=== PATIENT | male | born 1985 | race Hispanic/Latino ===

== ENCOUNTER 2022-01-05 09:19 | Emergency (ER) | payer SELFPAY ==
[2022-01-05] MEDS ORDERED: TETRACAINE HCL 0.5% 4ML OPTH ONE (09:35)
[2022-01-05] MEDS ORDERED: FLUORESCEIN SODIUM 1 MG/WRAP ONE (09:35)
[2022-01-05] MEDS ORDERED: TETANUS & DIPHTHERIA TOX,ADULT 0.5 ML VIAL ONE (10:08)
--- NOTE | 2022-01-05 10:15 | EDPHYS ---
Physician Documentation [facility] Name: Osvaldo Guerrero Age: 36 yrs Sex: Male : 1985 Arrival Date: 01/05/2022 Time: 09:21 Bed 3 Private MD: ED Physician Elia Lee HPI: 01/05 09:54 This 36 yrs old Male presents to ER via Ambulatory with complaints of left eye jl9 pain. Patient report using a chainsaw yesteray when a small piece of wood went into his eye. Patient denies any vision disturbances. . 09:54 The patient sustained an abrasion. Onset: The symptoms/episode began/occurred jl9 yesterday. Duration: the symptoms are continuous. Aggravated by blinking, Alleviated by nothing. Associated signs and symptoms: Pertinent negatives:. Patient does not utilize any form of vision correction. Severity of symptoms: Pain is currently a 2 / 10. Historical: - Allergies: 09:33 No Known Allergies; aa5 - PMHx: 09:33 Pancreatitis; Diabetes mellitus; aa5 - PSHx: 09:33 None; aa5 - Immunization history:: Last tetanus immunization: unknown. - Social history:: Smoking status: Patient denies any tobacco usage or history of. ROS: 09:56 Constitutional: Negative for fever, chills, and weight loss. jl9 09:56 ENT: Negative for injury, pain, and discharge, Neck: Negative for injury, pain, and swelling, Cardiovascular: Negative for chest pain, palpitations, and edema, Respiratory: Negative for shortness of breath, cough, wheezing, and pleuritic chest pain, Abdomen/GI: Negative for abdominal pain, nausea, vomiting, diarrhea, and constipation, Back: Negative for injury and pain, Skin: Negative for injury, rash, and discoloration, Neuro: Negative for headache, weakness, numbness, tingling, and seizure, Psych: Negative for depression, anxiety, suicide ideation, homicidal ideation, and hallucinations, Allergy/Immunology: Negative for hives, rash, and allergies, Endocrine: Negative for neck swelling, polydipsia, polyuria, polyphagia, and marked weight changes, Hematologic/Lymphatic: Negative for swollen nodes, abnormal bleeding, and unusual bruising. 09:56 Eyes: Positive for foreign body sensation, pain, redness. Exam: 09:58 Visual Acuity: I have reviewed the nursing documentation. jl9 09:58 Constitutional: This is a well developed, well nourished patient who is awake, alert, and in no acute distress. Head/Face: Normocephalic, atraumatic. 09:58 Eyes: Periorbital structures: appear normal, Pupils: equal, round, and reactive to light and accomodation, Extraocular movements: intact throughout, Conjunctiva: injected, in the left eye, tearing noted, Corneas: abrasion, that is small, on the left, at 10 o'clock, a fluorescein strip employed to appreciate the findings, Sclera: abrasion, of the medial aspect of conjunctiva of left eye and left iris, Anterior chamber: Lids and lashes: appear normal, Visual mireles: are intact, a slit lamp exam was employed for the exam. Vital Signs: 09:34 BP 125 / 83; Pulse 62; Resp 18 S; Temp 98.1(TE); Pulse Ox 99% on R/A; Weight 68 kg (R); aa5 Height 5 ft. 5 in. (165.10 cm) (R); 09:34 Body Mass Index 24.95 (68.00 kg, 165.10 cm) aa5 Procedures: 09:57 Eye Exam:. jl9 MDM: 09:34 Patient medically screened. 9 09:59 Data reviewed: vital signs, nurses notes. Counseling: I had a detailed discussion with jl9 the patient and/or guardian regarding: the historical points, exam findings, and any diagnostic results supporting the discharge/admit diagnosis, the need for outpatient follow up, to return to the emergency department if symptoms worsen or persist or if there are any questions or concerns that arise at home. 10:16 Differential diagnosis: Corneal abrasion of Foreign body in. jl9 01/05 09:53 Order name: Eye Tray; Complete Time: 09:53 aa5 01/05 11:05 Order name: [facility] [place]. Order: Frank lens eye irrigation to left eye; Complete Time: 11:05 aa5 Administered Medications: 09:53 Drug: Tetracaine Drops 0.5 % 1 drops {Note: completed by provider .} Route: Ophthalmic; aa5 Site: left eye; 09:53 Drug: Fluorescein Strip 1 strip {Note: completed by provider .} Route: Ophthalmic; aa5 Site: left eye; 10:11 Drug: Tetanus-Diphtheria Toxoid Adult 0.5 ml {[employer]: [employer]. Exp: jl7 08/12/2023. Lot #: [id number]. } Route: IM; Site: right deltoid; 11:05 Follow up: Response: No adverse reaction aa5 Disposition: 14:25 Co-signature as Attending Physician, Elia Lee MD I agree with the assessment and kdr plan of care. Disposition Summary: 01/05/22 10:14 Discharge Ordered Location: Home jl9 Condition: Stable jl9 Diagnosis - Injury of conjunctiva and corneal abrasion without foreign body jl9 Followup: jl9 - With: Maci Felder MD - When: 1 - 2 days - Reason: Recheck today's complaints, Continuance of care, Re-evaluation by your physician Discharge Instructions: - Discharge Summary Sheet jl9 - Corneal Abrasion, [id number] jl9 Forms: - Medication Reconciliation Form jl9 - Thank You Letter jl9 - Antibiotic Education jl9 - Prescription Opioid Use jl9 Prescriptions: - ofloxacin 0.3 % Ophthalmic drops - instill 2 drop by OPHTHALMIC route 4 times per day for 7 days; 1 Each; Refills: jl9 0, Product Selection Permitted Signatures: Elia Lee MD MD kdr Jazmin Benton RN RN aa5 Kristin Zuñiga RN RN jl7 Ricardo Arias jl9 Corrections: (The following items were deleted from the chart) 10:00 09:54 This 36 yrs old Male presents to ER via Ambulatory with complaints of jl9 left eye pain. Patient report using a chainsaw yesteray when a small piece of wood brandy into his eye. Patient denies any vision disturbances. . jl9
--- NOTE | 2022-01-05 10:15 | ER ---
Nurse's Notes [facility] Name: Osvaldo Guerrero Age: 36 yrs Sex: Male : 1985 Arrival Date: 01/05/2022 Time: 09:21 Bed 3 Private MD: Diagnosis: Injury of conjunctiva and corneal abrasion without foreign body Presentation: 01/05 09:34 Chief complaint: Patient states: cutting wood with table chain saw yesterday and felt a aa5 piece of wood get into his left eye. Incident occurred yesterday around 1600. Pt reports irritation to left eye. Coronavirus screen: At this time, the client does not indicate any symptoms associated with coronavirus-19. Ebola Screen: Patient denies travel to an Ebola-affected area in the 21 days before illness onset. Initial Sepsis Screen: Does the patient meet any 2 criteria? No. Patient's initial sepsis screen is negative. Does the patient have a suspected source of infection? No. Patient's initial sepsis screen is negative. Risk Assessment: Do you want to hurt yourself or someone else? Patient reports no desire to harm self or others. Onset of symptoms was January 04, 2022. 09:34 Acuity: ANDRE 4 aa5 09:34 Method Of Arrival: Ambulatory aa5 Historical: - Allergies: 09:33 No Known Allergies; aa5 - PMHx: 09:33 Pancreatitis; Diabetes mellitus; aa5 - PSHx: 09:33 None; aa5 - Immunization history:: Last tetanus immunization: unknown. - Social history:: Smoking status: Patient denies any tobacco usage or history of. Screenin:51 Abuse screen: Denies threats or abuse. Denies injuries from another. Nutritional db screening: No deficits noted. Tuberculosis screening: No symptoms or risk factors identified. 09:55 Fall Risk None identified. jl7 Assessment: 09:40 General: Appears uncomfortable, Behavior is calm, cooperative. Pain: Complains of pain aa5 in left eye Pain currently is 5 out of 10 on a pain scale. Pain began 1 day ago. Neuro: Level of Consciousness is awake, alert, obeys commands, Oriented to person, place, time, situation. Cardiovascular: Heart tones S1 S2 present Rhythm is regular. Respiratory: Airway is patent Respiratory effort is even, unlabored, Respiratory pattern is regular, symmetrical. GI: No signs and/or symptoms were reported involving the gastrointestinal system. : No signs and/or symptoms were reported regarding the genitourinary system. EENT: Sclera/Cornea are reddened in left eye Reports feels FB to left eye. Derm: Skin is pink, warm \T\ dry. Musculoskeletal: Range of motion: intact in all extremities. 10:40 Reassessment: Patient is alert, oriented x 3, equal unlabored respirations, skin aa5 warm/dry/pink. To bedside to d/c pt home, pt c/o continued feeling of FB to left eye, provider was notified, provider currently at bedside. . 11:05 Reassessment: Frank lens irrigation initiated to left eye per provider. . aa5 11:20 Reassessment: Pt tolerating eye irrigation well, states no complaints at this time . aa5 11:45 Reassessment: Patient is alert, oriented x 3, equal unlabored respirations, skin aa5 warm/dry/pink. Tolerating eye irrigation well, states no complaints. . 12:35 Reassessment: Patient is alert, oriented x 3, equal unlabored respirations, skin aa5 warm/dry/pink. Vital Signs: 09:34 BP 125 / 83; Pulse 62; Resp 18 S; Temp 98.1(TE); Pulse Ox 99% on R/A; Weight 68 kg (R); aa5 Height 5 ft. 5 in. (165.10 cm) (R); 09:34 Body Mass Index 24.95 (68.00 kg, 165.10 cm) aa5 ED Course: 09:21 Patient arrived in ED. am2 09:31 Jazmin Benton, RN is Primary Nurse. aa5 09:34 Ricardo Arias is PHCP. jl9 09:34 Elia Lee MD is Attending Physician. jl9 09:34 Arm band placed on. aa5 09:36 Triage completed. aa5 09:51 Patient has correct armband on for positive identification. Placed in gown. Bed in low db position. Call light in reach. Side rails up X 1. Pulse ox on. NIBP on. 09:53 Assist provider with eye exam using fluorescein stain, Performed by Ricardo Arias aa5 Patient tolerated well. 10:14 Maci Felder MD is Referral Physician. jl9 12:35 Eye irrigation of left eye w/ Frank lens with 1 liter normal saline, Patient tolerated aa5 well. 12:38 Patient did not have IV access during this emergency room visit. aa5 Administered Medications: 09:53 Drug: Tetracaine Drops 0.5 % 1 drops {Note: completed by provider .} Route: Ophthalmic; aa5 Site: left eye; 09:53 Drug: Fluorescein Strip 1 strip {Note: completed by provider .} Route: Ophthalmic; aa5 Site: left eye; 10:11 Drug: Tetanus-Diphtheria Toxoid Adult 0.5 ml {[employer]: [employer]. Exp: jl7 08/12/2023. Lot #: [id number]. } Route: IM; Site: right deltoid; 11:05 Follow up: Response: No adverse reaction aa5 Medication: 10:11 Vaccine Information Statement (VIS) provided today. Questions and/or concerns aa5 addressed. VIS edition date: November 11, 2021. Outcome: 10:14 Discharge ordered by MD. jl9 12:35 Discharged to home ambulatory. aa5 12:35 Condition: stable 12:35 Discharge instructions given to patient, Instructed on discharge instructions, follow up and referral plans. medication usage, Demonstrated understanding of instructions, follow-up care, medications, Prescriptions given X 1. 12:38 Patient left the ED. aa5 Signatures: Jazmin Benton, RN RN aa5 Kristin Zuñiga, RN RN jl7 Ro Martin John jl9 Jenifer Luna RN RN db Corrections: (The following items were deleted from the chart) 09:44 09:34 Chief complaint: Patient states: cutting wood with chain saw yesterday and felt a aa5 piece of wood get into his left eye. Incident occurred yesterday around 1600. Pt reports irritation to left eye aa5 :55 09:51 Client placed on continuous cardiac and pulse oximetry monitoring. NIBP jl7 monitoring applied. db 09:55 09:51 BP 146 / 77; Pulse 60bpm; Monitor: PacedResp 14bpm; Pulse Ox 97%; db jl7 09:55 09:51 Fall Risk No secondary diagnosis (0 pts). IV access (20 points). Ambulatory Aid- jl7 None/Bed Rest/Nurse Assist (0 pts). Gait- Normal/Bed Rest/Wheelchair (0 pts) Mental Status- Oriented to own ability (0 pts). Total Rawls Fall Scale indicates No Risk (0-24 pts). db 12:57 09:51 VIS not applicable for this client. db aa5
[2022-01-05] MEDS ORDERED: NA CHLORIDE 0.9% 1,000 ML ONE (10:52)
[2022-01-06 02:31] VITALS: BP 125/83; TEMP 98.1; O2SAT 99
== END 2022-01-05 12:38 | disposition home or self-care (01) ==
LOC: ER 09:19
DX: S05.02XA Injury of conjunctiva and corneal abrasion without foreign body, left eye, initial encounter (principal)
CPT/HCPCS: 90471; 90714; 99284; J7030